=== PATIENT | male | born 1970 | race Caucasian/White ===

== ENCOUNTER 2025-05-21 10:01 | Emergency (ER) | payer OTHER, SELFPAY ==
--- NOTE | ~2025-05-21 | CT_ITS ---
EXAMINATION: CT ORBIT WITH CONTRAST CLINICAL INFORMATION: Isolated 6th cranial nerve palsy. COMPARISON: None available. TECHNIQUE: 1.5 minute thin axial and reformatted 2 minute thin coronal and sagittal images of orbits were obtained following IV 85 mL of Omnipaque 350. This CT examination was performed using dose optimization techniques as appropriate, variously including the following: *Automated exposure control *Adjustment of mA and/or kV according to patient size (this includes techniques or standardized protocols for targeted exams where dose is matched to indication/reason for exam; i.e. extremities or head) *Use of iterative reconstruction technique DLP: 185 mGy/cm. FINDINGS: There is normal symmetrical appearing bilateral optic globes, optic nerves, intraorbital and extra orbital soft tissues. The left optic globe is slightly deviated to the midline compared to right side. There is no obvious ophthalmic artery aneurysm on either side. There is no engorgement or inflammatory process in the retrobulbar soft tissues on either side. There is mild thinning of the lateral rectus left orbit compared to right side. No abnormal enhancement seen in the optic globe or extraocular soft tissues. The cavernous sinuses are widely patent. Bilateral carotid arteries are symmetrical in petrous, cavernous and supraclinoid segments. No evidence of aneurysm or dissection. The basilar artery is widely patent. Visualized posterior fossa appears normal. No soft tissue mass, enhancement or infarction seen. Bilateral CP angles are symmetrical and normal. No abnormal enhancement seen in meningitis other soft tissues. The petrous apex is pneumatized bilaterally and appears unremarkable. The bony skull base appears unremarkable. Paranasal sinuses and mastoid air cells are well-aerated. Paranasal finding of mild deviation of the nasal septum to the right. Nasal cavity and nasopharynx appears unremarkable. CT/CT orbit BI w IV con IMPRESSION: Mild thinning of left lateral rectus compared to right side. Otherwise unremarkable CT orbits with IV contrast.. Electronically signed by: Rich Neumann MD 05/21/2025 04:36 PM EDT
[2025-05-21 10:23] VITALS: BP 206/119; PULSE 100; RESP 16; TEMP 36.2; O2SAT 98; BMI 30.8
[2025-05-21 10:39] LABS: MANUAL DIFF FLAG NO
[2025-05-21 10:41] LABS: Hematocrit 43.4 % (42.0-52.0); Hemoglobin 16.0 g/dl (14.0-18.0); Imm Gran Abs Auto 0.05 X10*3/uL (0.00-0.03); Imm Gran Pct Auto 0.8 % (0.0-0.4); Lymphocytes Absolute Auto 1.4 X10*3/uL (1.2-4.9); Mean Corpuscular HGB Conc 36.9 g/dl (31.0-36.0); Mean Corpuscular Hemoglobin 29.6 pg (27.0-33.0); Mean Corpuscular Volume 80.4 fL (80.0-98.0); NRBC Abs Auto 0.000 X10*3/uL (0.0-0.012); NRBC Pct Auto 0.0 /100WBC (0.0-0.2); Platelet Count 194 X10*3/uL (160-400); Red Blood Count 5.40 X10*6/uL (4.60-5.80); White Blood Count 6.1 X10*3/uL (4.8-10.8)
[2025-05-21 10:59] LABS: Anion Gap 16 (12-20); Blood Urea Nitrogen 15 mg/dL (9-16); Calcium 9.1 mg/dL (8.4-10.2); Carbon Dioxide 20 mmol/L (22-29); Chloride 103 mmol/L (96-108); Creatinine Clr Calc Pharmacy 107.7; Estimated Glomerular Filt Rate > 60; Potassium 4.4 mmol/L (3.3-5.1); Sodium 135 mmol/L (135-145)
[2025-05-21 11:05] LABS: Hemoglobin A1C 325.6395 umol/L; Total Hemoglobin (HGBA1C) 4262.1122 umol/L
[2025-05-21 13:44] VITALS: BP 154/102; PULSE 92; RESP 12; TEMP 37.2; O2SAT 95
--- NOTE | 2025-05-21 13:46 | ED_ITS ---
HPI - Eye Problem General Chief complaint: Eye Problems Stated complaint: l eye issue pain Time Seen by Provider: 05/21/25 13:44 History of Present Illness ED Provider: Demetrio Rodriguez PA-C HPI Narrative: 54-year-old male with medical history of type 2 diabetes, presents to the ED today due to 3 weeks of left-sided eye pain and disturbance. Patient states he began experiencing eye problems on 05/09 while walking [place], feeling ?woozy? and off with mild diplopia. Patient states he thought that the eye problems occurred due to recently starting on gabapentin for a nerve problem of his right arm and stop taking the medication that day. Patient states he woke up on 05/10 and noticed medial deviation of the left eye with increased blurry vision. Patient came back to [place] and was seen in urgent care on 05/15 who placed neuro consult an order for MRI. Patient was seen by an armor reconnaissance specialist on 05/16 who diagnosed patient with a 6th cranial nerve palsy and recommended care in the ED. patient states he called neurologist's office who was not able to see him until 07/25, and needed to be seen by neurologist before getting MRI. Patient comes into the ED today as he woke up Wednesday (05/19) with increased pain and pressure behind the left eye. Patient states the pain woke him from sleep. Has been taking Tylenol without effect. Patient states diplopia is persistent. Related Data Previous Rx's ?Medication ?Instructions ?Recorded lorazepam 0.5 mg tablet (Ativan) 0.5 mg PO TID PRN sle ep #10 tabs 05/21/25 Allergies Allergy/AdvReac Type Severity Reaction Status Date / Time ibuprofen AdvReac Unknown Verified 05/21/25 10:25 Review of Systems 2 Review of Systems: CONST: Negative for fever, body aches and chills. HENT: Negative for neck pain/stiffness, headache, congestion, sore throat, swelling. EYES: Negative for discharge. POS double vision, L eye cannot move laterally, L eye pressure/pain. RESP: Negative for cough/hemoptysis and shortness of breath. CV: Negative chest pain, difficulty breathing, palpitations. ABD: Negative pain, nausea, vomiting. : Negative increase frequency, dysuria, blood in urine or stool. MUSC: Negative for muscle aches, edema. SKIN: Negative rash, lesions/sores. NEURO: Negative headache, dizziness, weakness. Yes all other systems are reviewed and are negative [facility] Social History Social History Alcohol intake: current Alcohol type: beer Smoked in Last 30 Days: No Use of substances other than those prescribed or required for medical reasons: Yes Substance Use Type: Marijuana Substance Use Frequency: Daily Advance Directives: No Physical Exam 2 Vital Signs: Vital Signs: Last Vital Signs Temp 98.0 F 05/21/25 16:03 Pulse 83 05/21/25 16:03 Resp 13 05/21/25 16:03 BP 162/105 H 05/21/25 16:03 Pulse Ox 98 05/21/25 16:03 O2 Del Method Room Air 05/21/25 16:03 BMI result Body Mass Index 30.8 GENERAL APPEARANCE: ?AxOx4, generally well-appearing, no acute distress. HEENT: ?NC, AT. MMM. clear conjunctiva, oropharynx clear. Left eye with 6 cranial nerve palsy, eye can not cross the midline laterally, deviated medially approximately 30?, without pain during ocular movements. Tonometry reveals pressure of 24 mmHg of left side. NECK: ?Supple without lymphadenopathy.? No stiffness or restricted ROM. HEART:? Normal rate and regular rhythm, normal S1/S2, no m/r/g LUNGS:? CTAB, moving air well. No crackles or wheezes are heard. ABDOMEN: ?Soft, nontender, nondistended with good bowel sounds heard. BACK: No CVAT, no obvious deformity. EXTREMITIES: ?Without cyanosis, clubbing or edema. NEUROLOGICAL: ?Grossly nonfocal. Alert and oriented, moving all 4 extremities. Observed to ambulate with normal gait. Skin: ?Warm and dry without any rash. Medications Administered Discontinued Medications Generic Name Dose Route Start Last Admin Trade Name Freq PRN Reason Stop Dose Admin Acetaminophen 975 mg 05/21/25 17:46 05/21/25 17:52 Acetaminophen 325 Mg Tablet PO 05/21/25 17:47 975 mg ONCE ONE Administration Fluorescein Sodium 1 strip 05/21/25 17:36 05/21/25 17:48 Fluorescein Sodium Strip EYE-LEFT 05/21/25 17:37 1 strip ONCE ONE Administration Iohexol 100 ml 05/21/25 15:36 05/21/25 15:37 Iohexol 350 Mg/Ml 100 Ml Infus..Btl IV 05/21/25 15:37 85 ml ONCE ONE Administration Tetracaine HCl 3 drop 05/21/25 17:29 05/21/25 17:48 Tetracaine Hcl 0.5% Oph Kika 5 Ml Drops EYE-LEFT 05/21/25 17:30 Not Given ONCE ONE Medical Decision Making Medical Decision Making MDM Narrative: 54-year-old male with medical history of type 2 diabetes, presents to the ED today due to 3 weeks of left-sided eye pain and disturbance. Patient states he began experiencing eye problems on 05/09 while walking around [place], feeling ?woozy? and off with mild diplopia. Patient states he thought that the eye problems occurred due to recently starting on gabapentin for a nerve problem of his right arm and stop taking the medication that day. Patient states he woke up on 05/10 and noticed medial deviation of the left eye with increased blurry vision. Patient came back to [place] and was seen in urgent care on 05/15 who placed neuro consult an order for MRI. Patient was seen by an armor reconnaissance specialist on 05/16 who diagnosed patient with a 6th cranial nerve palsy and recommended care in the ED. patient states he called neurologist's office who was not able to see him until 07/25, and needed to be seen by neurologist before getting MRI. Patient comes into the ED today as he woke up Wednesday (05/19) with increased pain and pressure behind the left eye. Patient states the pain woke him from sleep. Has been taking Tylenol without effect. Patient states diplopia is persistent. Patient has PCP follow-up on Monday 05/28 Vital signs reveal hypertension of 162/105- likely due to pain and stress. Heart rate of 83, afebrile at 98?, 98% on room air. Physical exam reveals medially deviated left eye, pupils reactive to accommodation, consensual light reflex intact, without nystagmus, this is the only neurologic deficit observed on physical exam, Patient without facial drooping, speech slurring, no weakness of upper or lower extremities, ambulation without antalgic gait. Cardiac exam with regular rate and rhythm, no murmurs/rubs/gallops, lungs clear to auscultation bilaterally. Labs reveal elevated serum glucose of 272, with a hemoglobin A1c of 9.1, ESR/CRP WNL Tonometry reveals 24mmHg of L eye. Visual acuity: R-20/30, L-20/30 CT orbits with contrast ordered to evaluate for intracranial abnormalities that would cause 6th cranial nerve palsy. Course 17:48- CT B/L orbits revealed the left optic globe is slightly deviated to the midline compared to the right side. There is no obvious ophthalmic artery aneurysm on either side. There is no engorgement or inflammatory process in the retrobulbar soft tissues bilaterally. There is mild thinning of the lateral rectus left orbit compared to the right side. No abnormal enhancement seen of the optic globe or extraocular soft tissues. Bilateral carotid arteries are symmetrical. No evidence of aneurysm or dissection. The basilar artery is patent. Will discharge home for self-care, patient has follow up with PCP Monday 05/28. Patient has follow up with neurologist on 07/25, however I will refer to [facility] to see if he is able to get in any sooner. Counseled patient on home treatment, including 500 mg of Tylenol every 6 hours for pain management, ice packs, and frequent rest from electronics as patient does work on the computer frequently. Patient revealed he had been using an eye patch that sits against the eye. I did a flourecin stain to ensure there was no corneal defects. Fluorescein stain clear, no corneal defects observed. Patient stating he has mild headache, we will give 975 mg Tylenol of last dose of Tylenol was this morning at 6:00 a.m. Differential Diagnosis Differential Diagnoses: The differential diagnosis associated with the presentation includes Sixth cranial nerve palsy Intracranial mass Intracranial abnormality Six cranial nerve palsy due to diabetes mellitus Orbital abnormality Admission/Observation Consideration of admission/observation: Escalation of care including admission/observation considered Lab Data [facility] Lab Attestation statement: I reviewed the patient's lab results. 05/21/25 10:34 05/21/25 10:34 Labs: Lab Results 05/21/25 05/21/25 Range/Units 10:34 13:47 WBC 6.1 (4.8-10.8) X10*3/uL RBC 5.40 (4.60-5.80) X10*6/uL Hgb 16.0 (14.0-18.0) g/dl Hct 43.4 (42.0-52.0) % MCV 80.4 (80.0-98.0) fL MCH 29.6 (27.0-33.0) pg MCHC 36.9 H (31.0-36.0) g/dl RDW 13.1 (11.0-16.0) % Plt Count 194 (160-400) X10*3/uL MPV 10.2 (9.4-12.4) fL Immature Gran % (Auto) 0.8 H (0.0-0.4) % Neut % (Auto) 69.9 (45-73) % Lymph % (Auto) 22.4 (20-40) % [place] % (Auto) 5.1 (2-11) % Eos % (Auto) 1.0 (0-4) % Baso % (Auto) 0.8 (0-2) % Lymph # (Auto) 1.4 (1.2-4.9) X10*3/uL [place] # (Auto) 0.3 (0.1-1.2) X10*3/uL Eos # (Auto) 0.1 (0.0-0.4) X10*3/uL Baso # (Auto) 0.1 (0.0-0.2) X10*3/uL Abs Immat Gran (auto) 0.05 H (0.00-0.03) X10*3/uL Absolute Neuts (auto) 4.3 (2.0-8.3) x10*3/uL Absolute Nucleated RBC 0.000 (0.0-0.012) X10*3/uL Nucleated RBC % (auto) 0.0 (0.0-0.2) /100WBC ESR 7 (0-15) MM/HR Sodium 135 (135-145) mmol/L Potassium 4.4 (3.3-5.1) mmol/L Chloride 103 (96-108) mmol/L Carbon Dioxide 20 L (22-29) mmol/L Anion Gap 16 (12-20) BUN 15 (9-16) mg/dL Creatinine 0.79 (0.5-1.4) mg/dL Estim Creat Clear Calc 107.7 Estimated GFR > 60 POC Glucose 223 H (60-115) mg/dL Random Glucose 272 H (60-115) mg/dL Estimat Average Glucose 214 mg/dL Hemoglobin A1c % 9.1 H (<6.0) % Calcium 9.1 (8.4-10.2) mg/dL C-Reactive Protein < 0.10 (< or = 0.50) mg/dL Radiology Impression Discussion of test interpretation with radiology: I have reviewed the radiologist's reading. Radiologist Impression: CT orbits FINDINGS: There is normal symmetrical appearing bilateral optic globes, optic nerves, intraorbital and extra orbital soft tissues. The left optic globe is slightly deviated to the midline compared to right side. There is no obvious ophthalmic artery aneurysm on either side. There is no engorgement or inflammatory process in the retrobulbar soft tissues on either side. There is mild thinning of the lateral rectus left orbit compared to right side. No abnormal enhancement seen in the optic globe or extraocular soft tissues. The cavernous sinuses are widely patent. Bilateral carotid arteries are symmetrical in petrous, cavernous and supraclinoid segments. No evidence of aneurysm or dissection. The basilar artery is widely patent. Visualized posterior fossa appears normal. No soft tissue mass, enhancement or infarction seen. Bilateral CP angles are symmetrical and normal. No abnormal enhancement seen in meningitis other soft tissues. The petrous apex is pneumatized bilaterally and appears unremarkable. The bony skull base appears unremarkable. Paranasal sinuses and mastoid air cells are well-aerated. Paranasal finding of mild deviation of the nasal septum to the right. Nasal cavity and nasopharynx appears unremarkable. CT/CT orbit BI w IV con IMPRESSION: Mild thinning of left lateral rectus compared to right side. Otherwise unremarkable CT orbits with IV contrast.. Electronically signed by: Rich Neumann MD 05/21/2025 04:36 PM EDT Dictated By: Rich Neumann MD Signed By: <Electronically signed by Rich Neumann MD in OV> 05/21/25 1635 Independent Historian Clinical information obtained from an independent historian. History obtained from or confirmed by: Spouse (Significant other at bedside corroborating history) External Record Review External record reviewed: Inpatient record, Office record and Outpatient record Prescription Management I considered prescription management with: Other (I consider a course of steroids for possible inflammation, however decided against this due to patient's elevated A1c of 9.1, and elevated serum glucose of of 272) Chronic Conditions Patient?s care impacted by: Diabetes Discharge Plan Discharge Clinical Impression: Sixth cranial nerve palsy, Elevated hemoglobin A1c Patient Disposition: Home, Self-Care Additional Instructions: You were evaluated in the ED today due to left eye palsy/pain. Your physical exam revealed a 6th cranial nerve palsy of the left eye meaning your eye is unable able to look laterally. Your visual acuity test revealed 20/30 vision of both right and left eye. Tonometry testing which reveals pressure of the eyes revealed 24 mmHg of the left eye which is within normal limits. CT scan of your orbits revealed mild thinning of of the left lateral rectus muscle, otherwise unremarkable without evidence of aneurysm or mass. Flourecin stain of the L eye did not reveal any abrasion or defects. You were dose of 975 mg of Tylenol while in the department. Please do not take an additional dose until 2:00 a.m. (8 hours). You can manage this pain by taking 500 mg of Tylenol every 6 hours, do not take over 4000 mg per 24 hours. Additionally you can use ice packs, and get a cupped eye patch 1 that does not sit against the eye for management. I will prescribe you 5 days of Ativan that you can take at night to help you sleep when experiencing stress or difficulty sleeping. You stated you have follow up with your PCP on Monday 05/28, please make sure that you go to this appointment as you need to discuss control of diabetes. Please return to the emergency department if you experience fevers over 100.4?, chest pain, shortness of breath, increased pain of the left eye, decreased or changing vision of the left eye, uncontrollable headaches, or any new/worsening/concerning symptoms Prescriptions: New lorazepam [Ativan] 0.5 mg tablet 0.5 mg PO TID PRN (Reason: sleep) Qty: 10 0RF Print Language: Divehi
[2025-05-21 13:50] LABS: Glucose, Whole Blood 223 mg/dL (60-115)
--- OUTSIDE RECORDS SUMMARY | 2025-05-21 14:54 | XMS_ITS | Clinical Summary ---
Author Organization [facility] Address [address] [place] [address] Care Team Providers Care Rig Mechanic Name Role Phone Alfonso Palumbo MD Primary Care Provider [phone] Allergies No known active allergies Medications Medication Sig Dispensed Refills Start Date End Date Status aspirin 81 MG chewable tablet Chew 81 mg by mouth. 0 11/21/2014 Active Blood Glucose Monitoring Suppl (ONE TOUCH ULTRA 2) w/Device KIT Inject 1 each under the skin. 0 07/21/2019 Active Cholecalciferol 50 MCG (2000 UT) CAPS Take 2,000 Units by mouth. 0 08/03/2018 Active Probiotic CAPS Take by mouth. 0 Active Family History Medical History Relation Name Comments Diabetes Brother Diabetes Father Heart disease Father Cancer Mother Heart disease Mother Relation Name Status Comments Brother Father Mother Social History Tobacco Use Types Packs/Day Years Used Date Smoking Tobacco: Never Smokeless Tobacco: Never Alcohol Use Standard Drinks/Week Comments Yes 3 (1 standard drink = 0.6 oz pur e alcohol) Sex and Gender Information Value Date Recorded Sex Assigned at Not on file Gender Identity Not on file Sexual Orientation Not on file Job Start Date Occupation Industry Not on file Not on file Not on file Last Filed Vital Signs Vital Sign Reading Time Taken Comments Blood Pressure - - Pulse - - Temperature - - Respiratory Rate - - Oxygen Saturation - - Inhaled Oxygen Concentration - - Weight 86.2 kg (190 lb) 06/17/2022 9:44 AM EDT Height 165.1 cm (5' 5 ) 06/17/2022 9:44 AM EDT Body Mass Index 31.62 06/17/2022 9:44 AM EDT Plan of Treatment Health Maintenance Due Date Last Done Comments Hepatitis B Vaccines (1 of 3 - 3-dose series) 1971 Hepatitis C Screening 1971 Depression Screening 1983 BMI Counseling 1989 Preventative Health Evaluation 1989 Colon Cancer Screening (Colonoscopy) 2016 Shingrix-Zoster Vaccine (1 o f 2) 2021 COVID-19 Vaccine (3 - 2023-2 5 season) 2024 11/20/2020, 10/30/2020 Influenza Vaccine (#1) 2025 08/03/2018 DTap / Tdap / Td (2 - Td or Tdap) 06/21/2030 06/21/2020 Pneumococcal Vaccine Aged Out No long er eligible based on patient's age to complete this topic RSV Ped < 20 months Aged Out No longe r eligible based on patient's age to complete this topic Care Teams Rig Mechanic Relationship Specialty Start Date End Date Alfonso Palumbo MD [address] [facility] [place] [address] PCP - General Internal Medicine 06/08/22
--- OUTSIDE RECORDS SUMMARY | 2025-05-21 14:54 | XMS_ITS | Encounter Summary ---
Author Organization [facility] Address [address] [place] [address] Phone Care Team Providers Care Mining Machinery Assembler Name Role Phone Allison Bermudez ENERGY PROJECT ENGINEER Primary Care Provider [phone] Luan Hart MD Unavailable [phone] Unknown, Unknown Primary Care Provider Marisela Mills CNP Primary Care Provid er Encounter Details Date Type Department Care Team (Late st Contact Info) Description 09/03/2020 Procedure Pass [facility] Endoscopy Admitting Dept Virtual Department [address] [place] [address] Social History Tobacco Use Types Packs/Day Years Used Date Smoking Tobacco: Never Smokeless Tobacco: Never Alcohol Use Standard Drinks/Week Comments Not Currently 0 (1 standard drink = 0.6 oz pur e alcohol) rarely Sex and Gender Information Value Date Recorded Sex Assigned at Not on file Legal Sex Male 9:33 PM EDT Gender Identity Not on file Sexual Orientation Not on file documented as of this encounter Plan of Treatment Upcoming Encounters Date Type Department Care Team (Late st Contact Info) Description 05/28/2025 9:00 AM EDT Office Visit [facility] [address] [place] [address] [place] [address] Marisela Gillette, BASSAM [address] [facility], [address] [place] [address] documented as of this encounter Visit Diagnoses Not on filedocumented in this encounter Additional Health Concerns Assessment Noted Time PHQ-2 Depression Total Score: 0 10/12/20 9:40 AM EST documented as of this encounter Care Teams Mining Machinery Assembler Relationship Specialty Start Date End Date Allison Bermudez, ENERGY PROJECT ENGINEER [email or web address] PCP - General Family Medicine 11/08/17 01/20/24 Unknown, Unknown, MD PCP - General 01/21/24 10/29/24 Marisela Gillette, BASSAM [address] [place] [address], [address] [place] [address] [email or web address] PCP - General Family Medicine 10/30/24 Luan Hart MD [address] [facility] [email or web address]] [address] [place] [address] [facility] 10/12/19 documented as of this encounter Additional Source Comments The information contained in this document represents components of the legal health record. It is not the complete legal health record.[facility]
--- OUTSIDE RECORDS SUMMARY | 2025-05-21 14:54 | XMS_ITS | Clinical Summary ---
Author Organization [facility] Address [address] [place] [address] Care Team Providers Care Acquisition Marketing Manager Name Role Phone Alfonso Palumbo MD Primary Care Provider [phone] Surgical History Surgery Date Site/Laterality Comments KNEE SURGERY PROCEDURE:KNEE SURGERY Family History Medical History Relation Name Comments [...] at Not on file Legal Sex Male 6:05 PM EST Gender Identity Not on file Sexual Orientation Not on file Obstetrics History Last Filed Vital Signs Vital Sign Reading [...] Health Maintenance Due Date Last Done Comments DTaP,Tdap,and Td Vaccines (1 - Tdap) 1990 Hepatitis B Vaccines (1 of 3 - 19+ 3-dose series) 1990 Pneumococcal Vaccine: 50+ Ye ars (1 of 1 - PCV) 2021 Zoster Vaccines (1 of 2) 2021 Cholesterol Screening (Lipid Panel) 10/08/2022 Colorectal Cancer Screening: Colonoscopy 10/08/2022 HIV Screening 10/08/2022 Hepatitis C Screening 10/08/2022 Social Influencers of Health Screening 10/08/2022 COVID-19 Vaccine (1 - 2023-2 5 season) 2024 Depression Screening 10/25/2024 Influenza Vaccine (#1) 2025 HIB Vaccines Aged Out No longer eligi ble based on patient's age to complete this topic HPV Vaccines Aged Out No longer eligi ble based on patient's age to complete this topic Hepatitis A Vaccines Aged Out No long er eligible based on patient's age to complete this topic IPV Vaccines Aged Out No longer eligi ble based on patient's age to complete this topic MMR Vaccines Aged Out No longer eligi ble based on patient's age to complete this topic Meningococcal ACWY Vaccine Aged Out N o longer eligible based on patient's age to complete this topic Meningococcal B Vaccine Aged Out No l onger eligible based on patient's age to complete this topic RSV Immunization Patients Un kristina 20 months Aged Out No longer eligible b ased on patient's age to complete this topic Varicella Vaccines Aged Out No longer eligible based on patient's age to complete this topic Care Teams Acquisition Marketing Manager Relationship Specialty Start Date End Date Alfonso Palumbo MD [address] [place] [address] PCP - General Internal Medicine 06/08/22
[2025-05-21] MEDS: iohexoL 350 MG/ML 100 ML INFUS..BTL IV (15:37)
[2025-05-21 16:03] VITALS: BP 162/105; PULSE 83; RESP 13; TEMP 36.7; O2SAT 98
[2025-05-21] MEDS: Fluorescein Sodium STRIP 1 STRIP EYE-LEFT (17:48)
[2025-05-21 18:05] VITALS: BP 162/105; PULSE 83; RESP 13; TEMP 36.7; O2SAT 98
== END 2025-05-21 17:58 | disposition home or self-care (01) ==
PROVIDERS: Emergency Provider Emergency Medicine
DX: H49.22 Sixth [abducent] nerve palsy, left eye (principal); R73.09 Other abnormal glucose; H57.12 Ocular pain, left eye; Z79.899 Other long term (current) drug therapy
CPT/HCPCS: 36415; 70481; 80048; 82947; 83036; 85025; 85652; 86140; 99284; Q9967

== ENCOUNTER → 2025-05-21 15:21 | Outpatient (BNV) | payer OTHER, SELFPAY | PROVIDERS: Emergency Provider Emergency Medicine; Visit Provider Radiology Diagnostic Radiology | DX: H49.22 Sixth [abducent] nerve palsy, left eye (principal) | CPT/HCPCS: 70481 ==